=== PATIENT | male | born 1985 | race Caucasian/White ===

== ENCOUNTER → 2022-05-06 | Outpatient (CLI) | payer OTHER ==
[~2022-05-06] MED LIST: Keflex500 MG PO
[2022-05-06 16:49] LABS: BASOPHILS ABSOLUTE AUTO 0.07 K/mm3 (0.00-0.23); BASOPHILS PERCENT AUTO 1 % (0-2); EOSINOPHILS ABSOLUTE AUTO 0.11 K/mm3 (0.00-0.68); EOSINOPHILS PERCENT AUTO 2 % (0-6); Hematocrit 46.9 % (37.0-53.0); Hemoglobin 17.3 g/dL (13.5-17.5); IMMATURE GRAN ABSOLUTE AUTO 0.01 K/mm3 (0.00-0.10); IMMATURE GRAN PERCENT AUTO 0 % (0-1); LYMPHOCYTES ABSOLUTE AUTO 1.27 K/mm3 (0.84-5.20); LYMPHOCYTES PERCENT AUTO 18 % (21-46); MONOCYTES ABSOLUTE AUTO 0.84 K/mm3 (0.16-1.47); MONOCYTES PERCENT AUTO 12 % (4-13); Mean Corpuscular HGB 33.8 pg (26.0-34.0); Mean Corpuscular HGB Conc 36.9 g/dL (31.5-36.5); Mean Corpuscular Volume 92 fL (80-100); Mean Platelet Volume 10.2 fL (9.1-12.4); NEUTROPHILS ABSOLUTE AUTO 4.68 K/mm3 (1.96-9.15); NEUTROPHILS PERCENT AUTO 67 % (41-73); Platelet Count 242 K/mm3 (150-400); RDW Coefficient Variation 12.2 % (11.7-14.2); RDW Standard Deviation 40.5 fL (35.1-46.3); Red Blood Cell Count 5.12 M/mm3 (4.30-5.90); White Blood Cell Count 6.98 K/mm3 (4.00-11.30)
[2022-05-06 17:04] LABS: Albumin, Blood 4.6 g/dL (3.4-5.0); Albumin/Globulin Ratio 1.1 (0.8-1.8); Bilirubin, Total 0.8 mg/dL (0.1-1.0); Bun/Creatinine Ratio 6.7 (12.0-20.0); Creatinine, Blood 1.04 mg/dL (0.60-1.20); Globulin, Blood 4.2 g/dL (2.2-4.0); Magnesium, Blood 1.9 mg/dL (1.6-2.4); Potassium, Blood 3.7 mmol/L (3.5-5.5); Total Protein, Blood 8.8 g/dL (6.4-8.2)
== END | disposition home or self-care (01) ==
LOC: LAB SHORT 16:43
PROVIDERS: Emergency Medicine
DX: I10 Essential (primary) hypertension (principal); R00.0 Tachycardia, unspecified
CPT/HCPCS: 80053; 83735; 83880; 84484; 85025

== ENCOUNTER → 2025-01-21 | Outpatient (CLI) | payer BC ==
[2025-01-21 17:51] LABS: Hematocrit 48.2 % (37.0-53.0); Hemoglobin 17.0 g/dL (13.5-17.5); Mean Corpuscular HGB Conc 35.3 g/dL (31.5-36.5); Mean Corpuscular Volume 94 fL (80-100); NRBC ABSOLUTE 0.00 K/mm3 (0.00-0.02); NRBC Auto 0.0 /100 WBC (0.0-0.2); Platelet Count 242 K/mm3 (150-400); RDW Coefficient Variation 11.7 % (11.7-14.2); RDW Standard Deviation 40.4 fL (35.1-46.3)
[2025-01-22 07:52] LABS: Alanine Aminotransfer (ALT/SGP 108 U/L (12-78); Albumin, Blood 4.0 g/dL (3.4-5.0); Albumin/Globulin Ratio 1.1 (0.8-1.8); Anion Gap 11 mmol/L (3-11); Aspartate Aminotrans (AST/SGOT 83 U/L (12-37); Bilirubin, Total 0.9 mg/dL (0.1-1.0); Blood Urea Nitrogen 10 mg/dL (8-24); CHOL/HDL RATIO 2.4; CO2, Blood 27 mmol/L (21-32); Calcium, Blood 9.4 mg/dL (8.5-10.1); Chloride, Blood 102 mmol/L (98-108); Cholesterol 218 mg/dL (50-200); Creatinine, Blood 0.90 mg/dL (0.60-1.20); Globulin, Blood 3.7 g/dL (2.2-4.0); Glucose, Blood 95 mg/dL (70-99); HDL Cholesterol 92 mg/dL (>39); LDL/HDL RATIO 1.1; Low Density Lipoprotein Chol 105 mg/dL (0-110); Potassium, Blood 3.9 mmol/L (3.5-5.5); Sodium, Blood 136 mmol/L (136-145); Thyroid Stimulating Hormone 1.120 uIU/mL (0.360-4.800); Total Protein, Blood 7.7 g/dL (6.4-8.2); Triglycerides 103 mg/dL (30-140); Very Low Density Lipoprot Chol 20 mg/dL (6-28)
== END | disposition home or self-care (01) ==
LOC: LAB 09:02 → LAB SHORT 09:02
PROVIDERS: Family Medicine
DX: I10 Essential (primary) hypertension (principal)
CPT/HCPCS: 80053; 80061; 83036; 84443; 85027

== ENCOUNTER → 2025-02-04 | Outpatient (CLI) | payer BC | LOC: LAB SHORT 16:26 → LAB 16:26 | DX: M10.9 Gout, unspecified (principal) | CPT/HCPCS: 84550 ==